=== PATIENT | male | born 2000 | race Caucasian/White ===

== ENCOUNTER 2020-01-10 00:42 | Outpatient (CLI) | payer OTHER, SELFPAY ==
[2020-01-10 18:05] LABS: SARS-CoV-2 RNA PCR Negative
== END 2020-01-10 00:43 | disposition home or self-care (01) ==
LOC: ANHCOVIDDT 00:43
PROVIDERS: PCP Pediatrics; Visit Provider Internal Medicine Gastroenterology
DX: Z01.818 Encounter for other preprocedural examination (principal); Z11.59 Encounter for screening for other viral diseases
CPT/HCPCS: 87635; C9803; U0003

== ENCOUNTER 2020-01-13 03:47 | Day surgery (SDC) | payer OTHER, SELFPAY ==
[2020-01-06 14:00] VITALS: BMI 23.2
[2020-01-13 07:16] VITALS: BP 128/73; RESP 18; TEMP 36.4; O2SAT 100; BMI 23.3
[2020-01-13] MEDS: LACTATED RINGERS 1,000 ML 150 ML IV CONT (07:26)
--- NOTE | 2020-01-13 07:54 | WPDGICN ---
Assessment and Plan Assessment and plan (1) Rectal bleeding: Code(s): K62.5 - Hemorrhage of anus and rectum Status: Acute Assessment and Plan: Patient has ongoing and persistent rectal bleeding. For this reason colonoscopy will be performed differential diagnosis includes hemorrhoids. But given his age inflammatory bowel disease will need to be excluded. High-fiber diet is advised. Anusol or other cream to the rectal area may be of some benefit. GI Consult Note Consult date/time: 01/13/20 07:54 HPI: Naman Hoover is a 19 year old male seen in evaluation at the request of Gabrielle Zhou. patient reports a 6 month history of bright red blood per rectum. He notices the blood is admixed with his stool. He describes it usually bright red blood. It seems to occur with every bowel movement. He had distant denies any change in bowel habits. He denies constipation or diarrhea. He denies any fevers. He reports having 1-3 bowel movements a day. Family history is noncontributory. There is no known history of colon or rectal disease. Patient has been on no medications. Today patient notes mid epigastric pain he describes is a hunger pain. Review of Systems Review of Systems: All systems reviewed & are unremarkable except as noted in HPI and below Meds Home Medications and Allergies Home Medications Medication Instructions Recorded Confirmed Type No Home Medications 01/07/20 01/07/20 History Allergies Allergy/AdvReac Type Severity Reaction Status Date / Time No Known Allergies Allergy Verified 01/13/20 07:30 Vital Signs Vital Signs - 24 hr 01/13/20 07:16 Temperature 97.5 F L Respiratory Rate 18 Blood Pressure 128/73 Pulse Oximetry 100 Exam Narrative: Exam Narrative: Physical exam reveals patient to be alert. Oriented x3. HEENT exam unremarkable. Lungs are clear to auscultation and percussion. Heart is without murmur or extra sounds. Abdominal exam bowel sounds are present soft nontender with no hepatosplenomegaly. Digital external rectal exam is normal.
--- NOTE | 2020-01-13 08:12 | WPDANESEPPF ---
Anes - Initial Pre Proc Eval Procedure: Operation Date: 01/13/20 08:30 Proposed Procedures p Colonoscopy - Chemo Warren MD Date/Time: 01/13/20 08:12 Surgeon: Chemo Warren MD Pre Op Diagnosis: Lower GI Bleed Patient Data Age: 19 Gender: M Height: 6 ft 5 in Weight: 89.5 kg Last Vital Signs Temp 97.5 F L 01/13/20 07:16 Resp 18 01/13/20 07:16 BP 128/73 01/13/20 07:16 Pulse Ox 100 01/13/20 07:16 Allergies Allergy/AdvReac Type Severity Reaction Status Date / Time No Known Allergies Allergy Verified 01/13/20 07:30 Home Medications Medication Instructions Recorded Confirmed Type No Home Medications 01/07/20 01/07/20 History Patient hx anesthesia problems: none Family hx anesthesia problems: none [facility] Past Medical History Medical History (Updated 01/13/20 @ 08:12 by William Raines MD) Healthy adult Anes - Eval Final PreProcedure Day of Procedure 01/13/20 08:12 Patient weight: normal Heart: regular rate and rhythm Lungs: clear to auscultation Airway: Mallampati scale class II Neurological: alert and oriented Last oral intake: >/= 8 hours ASA classification: I Emergent: no Anesthetic plan: proceed Anesthesia type and monitoring: general GIVS and standard monitoring Informed Consent: The patient's anesthetic plan and its attendant risks and benefits were discussed with the patient/family/POA. Questions were solicited and answers provided to the satisfaction of the patient/family/POA.
[2020-01-13] MEDS: SIMETHICONE ORAL SUSPENSION 20 MG/0.3 ML 30 ML BOTTLE 0.6 ML IRRIGATION (08:41)
[2020-01-13 08:53] VITALS: BP 78/31; PULSE 57; RESP 18; O2SAT 98
[2020-01-13 09:03] VITALS: BP 82/34; PULSE 57; RESP 18; O2SAT 98
[2020-01-13 09:13] VITALS: BP 84/36; PULSE 57; RESP 18; O2SAT 98
[2020-01-13 09:23] VITALS: BP 121/57; PULSE 65; RESP 18; O2SAT 98
[2020-01-13 09:33] VITALS: BP 111/63; PULSE 55; RESP 18; O2SAT 98
== END 2020-01-13 09:45 | disposition home or self-care (01) ==
PROVIDERS: PCP Pediatrics; Visit Provider Internal Medicine Gastroenterology
PROC: 0DJD8ZZ Inspection of Lower Intestinal Tract, Via Natural or Artificial Opening Endoscopic (ICD-10-PCS; CPT 45378; principal; 2020-01-13 08:30)
DX: K62.5 Hemorrhage of anus and rectum (principal); K63.5 Polyp of colon
CPT/HCPCS: 45385; 88305; J2704; J7120

== ENCOUNTER 2020-06-09 05:58 | Emergency (ER) | payer OTHER, SELFPAY ==
--- NOTE | ~2020-06-09 | CT_ITS ---
EXAMINATION: CT abdomen pelvis w con DATE: 06/09/2020 07:28 INDICATION: Lower abdominal pain TECHNIQUE: Computed tomography (CT) of the abdomen and pelvis was performed with 100 mL Omnipaque-350 intravenous contrast. Automated exposure control and iterative reconstruction technique were employe d. The dose-length product was 423.08 mGy-cm. COMPARISON: None FINDINGS: Lung bases are clear. Heart size is normal. No pericardial or pleural effusion. Liver, gallbladder, s pleen, pancreas, bilateral adrenal glands and kidneys are normal. Bowels including the appendix are n ormal. Bladder is normal. No free intraperitoneal gas or fluid. No pathologically enlarged abdominal or pelvic lymphadenopathy. Bones are unremarkable. IMPRESSION: 1. No acute intra-abdominal/pelvic process. Reviewed, dictated and finalized at location A. [employer]
[2020-06-09 06:07] VITALS: BP 123/67; PULSE 57; RESP 21; TEMP 37.1; O2SAT 100
[2020-06-09 06:35] LABS: Add Urine Microscopic? NO; Appearance Urine Clear (Clear); Bilirubin Urine Negative (Negative); Blood Urine Negative (Negative); Color Urine Yellow (Yellow); Glucose Urine UA Negative (Negative); Ketones Urine Negative (Negative); Leukocyte Esterase Ur Negative LEU/UL (Negative); Nitrate Urine Negative (Negative); Protein Urine Negative (Negative); Specific Grav Ur 1.018 (1.001-1.035); Urobilinogen Urine Negative mg/dL (<2.0)
[2020-06-09] MEDS: ONDANSETRON INJ 4 MG/2 ML VIAL IV PUSH (06:39)
[2020-06-09 06:41] LABS: Basophils Percent Auto 0.2 % (0.2-1.2); Eosinophils Absolute Auto 0.1 K/mm3 (0-0.3); Eosinophils Percent Auto 1.3 % (0-4.4); Hematocrit 48.3 % (42.0-52.0); Hemoglobin 15.8 g/dL (14.0-18.0); Immature Granulocyte Absolute 0.01 K/mm3 (0.00-0.031); Immature Granulocyte Percent A 0.2 % (0-0.5); Lymphocytes Absolute Auto 2.14 K/mm3 (0.9-3.2); Lymphocytes Percent Auto 38.8 % (18.3-44.2); Mean Corpuscular HGB Conc 32.7 g/dl (32-36); Mean Corpuscular Hemoglobin 30.4 pg (26-34); Mean Corpuscular Volume 92.9 fl (80-100); Mean Platelet Volume 9.4 fl (7.4-10.4); Monocytes Absolute Auto 0.3 K/mm3 (0.1-0.6); Monocytes Percent Auto 5.8 % (2.6-8.5); Neutrophils Percent Auto 53.7 % (45.5-73.1); Platelet Count Result 176 k/mm3 (150-375); Red Cell Distribution Width 12.9 % (11.5-14.5); White Blood Count 5.5 K/mm3 (4.5-10.0)
[2020-06-09] MEDS: MORPHINE SULFATE (*CRX) 4 MG/ML INJ IV PUSH (06:41)
[2020-06-09 06:50] LABS: Alanine Aminotransferase 25 U/L (4-50); Albumin Level 4.4 g/dL (3.5-5.1); Alkaline Phosphatase 91 U/L (38-126); Anion Gap 6 mmol/L (8-16); Aspartate Amino Transferase 37 U/L (17-59); Bilirubin,Total 0.4 mg/dL (0.2-1.3); Blood Urea Nitrogen 13 mg/dL (9-20); Calcium 9.7 mg/dL (8.4-10.2); Carbon Dioxide 35 mmol/L (22-30); Chloride 100 mmol/L (98-107); Estimated CRCL calculation 162 ml/min; Estimated Glomerular Filt Rate > 60; Glucose 109 mg/dL (75-110); Lipase 59 U/L (23-300); Potassium 4.6 mmol/L (3.4-5.0); Sodium 141 mmol/L (137-145)
--- NOTE | 2020-06-09 07:10 | ED.ABDPAIN ---
HPI - Abdominal Pain General Chief Complaint: Abdominal Pain <Leah Stovall MD - Last Filed: 06/10/20 01:14> Stated Complaint: abdominal pain <Leah Stovall MD - Last Filed: 06/10/20 01:14> Time Seen by Provider: 06/09/20 06:23 <Leah Stovall MD - Last Filed: 06/10/20 01:14> Source: patient <Leah Stovall MD - Last Filed: 06/10/20 01:14> Mode of arrival: ambulatory <Leah Stovall MD - Last Filed: 06/10/20 01:14> Limitations: no limitations <Leah Stovall MD - Last Filed: 06/10/20 01:14> History of Present Illness HPI narrative: This patient is a 20 year old male who presents for evaluation of lower abdominal pain. He states this pain started 5 hours ago suddenly in his lower abdomen. His pain has continued and he states it hurts all over. He denies nausea, vomiting, fever, chills. He denies issues with urinating or having a bowel movement. <Leah Stovall MD - Last Filed: 06/10/20 01:14> Related Data Home Medications: Home Medications Medication Instructions Recorded Confirmed doxycycline hyclate 100 mg PO DAILY 06/09/20 06/09/20 <Leah Stovall MD - Last Filed: 06/10/20 01:14> Allergies/Adverse Reactions: Allergies Allergy/AdvReac Type Severity Reaction Status Date / Time No Known Allergies Allergy Verified 06/09/20 06:13 <Leah Stovall MD - Last Filed: 06/10/20 01:14> Review of Systems Review of Systems: All systems reviewed & are unremarkable except as noted in HPI and below <Leah Stovall MD - Last Filed: 06/10/20 01:14> Constitutional: Constitutional: Denies chills and Denies fever(s) <Leah Stovall MD - Last Filed: 06/10/20 01:14> Gastrointestinal: Gastrointestinal: Reports abdominal pain <Leah Stovall MD - Last Filed: 06/10/20 01:14> Genitourinary: Genitourinary: Denies hematuria, Denies oliguria, Denies genital lesions and Denies penile discharge <Leah Stovall MD - Last Filed: 06/10/20 01:14> [facility] Past Medical History Medical History: Medical History (Updated 06/10/20 @ 00:00 by Teresita Camejo) Healthy adult <Leah Stovall MD - Last Filed: 06/10/20 01:14> Surgical History Surgical History: Surgical History (Updated 06/09/20 @ 07:15 by Leah Stovall MD) No pertinent past surgical history <Leah Stovall MD - Last Filed: 06/10/20 01:14> Social History Social History: Social History Gender identity (if verbalized by the patient): Male <Leah Stovall MD - Last Filed: 06/10/20 01:14> Exam Const: General: healthy appearing and alert <Leah Stovall MD - Last Filed: 06/10/20 01:14> Orientation/consciousness: patient oriented x3 <Leah Stovall MD - Last Filed: 06/10/20 01:14> Other: mild distress <Leah Stovall MD - Last Filed: 06/10/20 01:14> Eyes: EOM: EOMs intact bilaterally <Leah Stovall MD - Last Filed: 06/10/20 01:14> Chest: Chest palpation & inspection: normal inspection of the chest <Leah Stovall MD - Last Filed: 06/10/20 01:14> Resp: Effort & Inspection: normal respiratory effort and no retractions <Leah Stovall MD - Last Filed: 06/10/20 01:14> Auscultation: clear to auscultation bilaterally <Leah Stovall MD - Last Filed: 06/10/20 01:14> Cardio: Rate: regular rate <Leah Stovall MD - Last Filed: 06/10/20 01:14> Rhythm: regular rhythm <Leah Stovall MD - Last Filed: 06/10/20 01:14> Heart sounds: no murmurs <Leah Stovall MD - Last Filed: 06/10/20 01:14> GI: GI Palp: Yes Soft to palpation, Yes Tenderness to palpation present (GI) (Diffuse) and No Guarding due to palpation present (GI) <Leah Stovall MD - Last Filed: 06/10/20 01:14> Auscultation: normal bowel sounds <Leah Stovall MD - Last Filed: 06/10/20 01:14> Skin: General skin exam: normal color <Leah Stovall MD - Last Filed: 06/10/20 01:14>
[2020-06-09 07:49] VITALS: BP 116/61; PULSE 60; RESP 16; O2SAT 99
--- NOTE | 2020-06-09 08:46 | PC.NURSE ---
pt wants covid test prior to d/c. aware
[2020-06-09 08:52] VITALS: BP 133/7; PULSE 79; RESP 18; O2SAT 99
[2020-06-09 18:52] LABS: SARS-CoV-2 RNA PCR Positive
== END 2020-06-09 09:00 | disposition home or self-care (01) ==
PROVIDERS: General Practice; Emergency Provider Emergency Medicine; PCP Pediatrics
DX: U07.1 COVID-19 (principal); R10.30 Lower abdominal pain, unspecified
CPT/HCPCS: 36415; 74177; 80053; 81003; 83690; 85025; 87635; 96374; 96375; 99284; C9803; J2270; J2405; Q9967; U0003

== ENCOUNTER 2022-03-11 06:16 | Emergency (ER) | payer OTHER, SELFPAY ==
--- NOTE | ~2022-03-11 | XR_ITS ---
EXAMINATION: XR shoulder LT min 2V DATE: 03/11/2022 07:17 INDICATION: Left shoulder pain. Fall. TECHNIQUE: 4 views of left shoulder were obtained. COMPARISON: None. FINDINGS: Bone alignment is normal. No fracture. Joint spaces are well maintained. IMPRESSION: 1. Normal left shoulder. Reviewed, dictated and finalized at location A. IMPRESSION: 1. Normal left shoulder.
--- NOTE | ~2022-03-11 | XR_ITS ---
EXAMINATION: XR forearm LT 2V DATE: 03/11/2022 07:17 INDICATION: Fall. TECHNIQUE: 2 views of left forearm were obtained. COMPARISON: None. FINDINGS: Bone alignment is normal. There is an avulsion fracture of the ulnar styloid. Joint spaces are normal. There is an elbow joint effusion. IMPRESSION: 1. Elbow joint effusion. 2. Avulsion fracture of the ulnar styloid. Reviewed, dictated and finalized at location A.
--- NOTE | ~2022-03-11 | XR_ITS ---
EXAMINATION: XR hand LT min 3V DATE: 03/11/2022 07:17 INDICATION: Fall. TECHNIQUE: 3 views of left hand were obtained. COMPARISON: None. FINDINGS: Bone alignment is normal. There is an avulsion fracture of the ulnar styloid. There is a ca lcification at radial aspect of base of third proximal phalanx. Joint spaces are normal. IMPRESSION: 1. Avulsion fracture of the ulnar styloid. 2. Calcification at radial aspect of base of third proximal phalanx, which may be an acute avulsion f racture or a chronic finding. Reviewed, dictated and finalized at location A. IMPRESSION: 1. Avulsion fracture of the ulnar styloid. 2. Calcification at radial aspect of base of third proximal phalanx, which may be an acute avulsion fracture or a chronic finding.
--- NOTE | ~2022-03-11 | XR_ITS ---
EXAMINATION: XR elbow LT min 3V DATE: 03/11/2022 07:17 INDICATION: Fall. TECHNIQUE: 3 views of left elbow were obtained. COMPARISON: None. FINDINGS: Bone alignment is normal. There is a nondisplaced fracture of radial head. Joint spaces are normal. There is an elbow joint effusion. IMPRESSION: 1. Nondisplaced fracture of radial head. 2. Elbow joint effusion. Reviewed, dictated and finalized at location A.
[2022-03-11 06:22] VITALS: BP 127/68; PULSE 68; RESP 18; TEMP 36.7; O2SAT 98
--- NOTE | 2022-03-11 07:11 | PC.NURSE ---
Report received from Neela CARROLL and care of pt assumed at this time. Pt is in radiology at time of report.
--- NOTE | 2022-03-11 07:21 | ED.GENADULT ---
HPI - General Adult General Chief complaint: Extremity Injury, Upper Stated complaint: Left arm pain Time Seen by Provider: 03/11/22 06:37 History of Present Illness HPI narrative: 21-year-old male presenting to the emergency department for evaluation of left arm pain after having a ground-level fall last night. Patient states he was walking down 2 steps and look to the side and missed one of the steps causing him to fall forward. Patient did attempt to catch himself with his outstretched left arm. Patient does complain of pain in left shoulder elbow wrist and hand. Patient states he did strike his head but denies loss of consciousness. Patient denies any headache at this time. Related Data Allergies Allergy/AdvReac Type Severity Reaction Status Date / Time No Known Allergies Allergy Verified 06/07/21 14:23 Review of Systems Review of Systems: CONSTITUTIONAL: Denies fever, chills, or sweats. EYES: Denies visual changes, redness, or discharge. ENT: Denies rhinorrhea, congestion, sore throat, or otalgia. CARDIOVASCULAR: Denies chest pain, palpitations, or edema. RESPIRATORY: Denies cough or dyspnea. GASTROINTESTINAL: Denies abdominal pain, nausea, vomiting, or diarrhea. GENITOURINARY: Denies dysuria or hematuria. SKIN: Denies rash or itching. MUSCULOSKELETAL: Left arm and hand pain NEUROLOGIC: Denies headache, numbness, or weakness. PMFSH Past Medical History Medical History Healthy adult Surgical History Surgical History No pertinent past surgical history Social History Social History Smoking status: Never smoker Gender identity (if verbalized by the patient): Male Exam Narrative: APPEARANCE: Well appearing, no pain, no distress, well-nourished. HEAD: normocephalic, atraumatic. EYES: PERRLA/EOMI, conjunctivae clear. NOSE: Normal no drainage EARS:TMS clear with good light reflex. NECK: Supple. No adenopathy, no masses. RESPIRATORY: Airway patent, respirations nonlabored. Clear to auscultation bilaterally, no rales, rhonchi, wheezing. CARDIOVASCULAR: Regular rate and rhythm without murmurs rubs or gallops. ABDOMINAL: Soft, nontender, nondistended, normal bowel sounds MUSCULOSKELETAL: Moves all extremities. Decreased range of motion of left shoulder with no deformity. Effusion at the left elbow with some limited range of motion. Normal range of motion of all fingers. No ecchymosis swelling or tenderness at base of the third phalanx. Suspect that the x-ray finding is calcification versus an acute avulsion fracture. Neurovascular intact. NEURO: Alert. Cranial nerves II through XII intact. Grossly intact SKIN: Abrasion to left wrist Course Course Emergency Course: Patient was updated on the results of his x-rays. Patient had no reproducible tenderness at the hand so I feel the x-ray finding for the hand is calcification versus avulsion fracture. Patient was provided a splint for the sternal fracture and sling for the elbow fracture. Patient was informed to have close follow-up with orthopedics and with his primary care physician. Vital Signs Vital signs: Vital Signs Temperature 98.0 F 03/11/22 06:22 Pulse Rate 68 03/11/22 06:22 Respiratory Rate 18 03/11/22 06:22 Blood Pressure 127/68 03/11/22 06:22 Pulse Oximetry 98 03/11/22 06:22 Oxygen Delivery Room Air 03/11/22 06:22 Temperature 98.0 F 03/11/22 06:22 Pulse Rate 78 03/11/22 07:59 Respiratory Rate 16 03/11/22 07:59 Blood Pressure 134/86 03/11/22 07:59 Pulse Oximetry 98 03/11/22 07:59 Oxygen Delivery Room Air 03/11/22 06:22 Medical Decision Making Vital Signs Vital Signs: Vital Signs Temperature 98.0 F 03/11/22 06:22 Pulse Rate 68 03/11/22 06:22 Respiratory Rate 18 03/11/22 06:22 Blood Pressure 127/68 03/11/22 06:22
[2022-03-11] MEDS: IBUPROFEN 400 MG TABLET 800 MG PO (07:36)
[2022-03-11 07:59] VITALS: BP 134/86; PULSE 78; RESP 16; O2SAT 98
== END 2022-03-11 08:05 | disposition home or self-care (01) ==
PROVIDERS: Emergency Provider Emergency Medicine; PCP Pediatrics
DX: S52.125A Nondisplaced fracture of head of left radius, initial encounter for closed fracture (principal); S52.615A Nondisplaced fracture of left ulna styloid process, initial encounter for closed fracture; S49.92XA Unspecified injury of left shoulder and upper arm, initial encounter; W10.9XXA Fall (on) (from) unspecified stairs and steps, initial encounter
CPT/HCPCS: 29125; 73030; 73080; 73090; 73130; 99284; A4565; A9270